=== PATIENT | female | born 1980 | race Hispanic/Latino ===

== ENCOUNTER 2017-11-10 13:40 | Emergency (ER) | payer BC ==
[~2017-11-10] VITALS: Ht 162.6 cm; Wt 100.0 kg
[~2017-11-10 13:40] MED LIST: FERRETTS325 MG PO; LAMOTRIGINE150 MG PO; PROAIR HFA IN; TRAZODONE50 MG PO; VITAMIN B-121000 MCG PO
[2017-11-10 14:14] LABS: BASO% 0 % (0-3); EOS% 2 % (0-8); IMMATURE GRANULOCYTES 0.6 % (0.0-5.0); LYMPH% 19 % (15-41); MEAN CELL VOLUME 65.3 fL CALC (80.0-100.0); MEAN CORPUSCULAR HGB 15.3 pG CALC (26.0-32.0); MEAN CORPUSCULAR HGB CONC 23.4 g/L CALC (32.0-36.0); MONO% 5 % (2-13); NEUT# 7.42 thou/uL (2.00-7.15); NEUT% 73 % (42-76); PLATELET COUNT 376 thou/uL (130-400); RED CELL DISTRI WIDTH 21.6 % (11.5-15.5)
[2017-11-10 14:20] LABS: HEMATOCRIT 22.2 % (37.0-47.0); HEMOGLOBIN 5.2 g/dl (12.0-16.0)
[2017-11-10 14:21] LABS: MANUAL DIFFERENTIAL YES
[2017-11-10 14:31] LABS: ANION GAP 16 (6-22 (CALC)); BUN 10 mg/dL (7-17); BUN/CREATININE RATIO 16 (12-20 (CALC)); CARBON DIOXIDE 25 mmol/l (22-30); CHLORIDE 103 mmol/l (95-108); CREATININE 0.6 mg/dL (0.5-1.0); GFR > 60 ML/MIN (>=60 (CALC)); GFR FOR AFR.AMER. > 60 ML/MIN (>=60 (CALC)); HYPOCHROMIA MODERATE; POTASSIUM 4.1 mmol/l (3.5-5.1); SODIUM 141 mmol/l (137-146)
[2017-11-10 14:32] LABS: MICROCYTOSIS MODERATE
[2017-11-10 14:34] LABS: INTERNATIONAL NORMALIZED RATIO 0.9 RATIO (0.7-1.3); PROTHROMBIN TIME 10.2 SECONDS (9.0-12.5)
[2017-11-10] MEDS ORDERED: PEPCID20 MG PO (14:44)
[2017-11-10] MEDS ORDERED: PANTOPRAZOLE SO40 MG PO (14:47)
[2017-11-10] MEDS ORDERED: HYDROXYZ HCL25 MG PO (14:47)
[2017-11-10] MEDS ORDERED: LEXAPRO10 MG PO (14:48)
[2017-11-10 16:00] VITALS: BP 123/58
[2017-11-10 16:24] VITALS: BP 128/60
[2017-11-10 16:48] VITALS: BP 127/93
[2017-11-10 18:27] LABS: ANISOCYTOSIS MODERATE
== END 2017-11-10 16:35 | disposition short-term general hospital (02) | DRG 812 ==
LOC: ED 13:40 → ED-I 14:23 → ED 16:35
PROVIDERS: Family Medicine
PROC: 30233N1 Transfusion of Nonautologous Red Blood Cells into Peripheral Vein, Percutaneous Approach (ICD-10-PCS; principal; 2017-11-10)
DX: D50.9 Iron deficiency anemia, unspecified (principal); J45.909 Unspecified asthma, uncomplicated; K21.9 Gastro-esophageal reflux disease without esophagitis; F32.9 Major depressive disorder, single episode, unspecified
CPT/HCPCS: P9016